=== PATIENT | female | born 1980 | race Hispanic/Latino ===

== ENCOUNTER 2020-06-19 14:37 | Emergency (ER) | payer SELFPAY ==
[2020-06-19 14:42] VITALS: BP 148/91
--- NOTE | 2020-06-19 15:18 | Event Note ---
ED Screening Note ED Screening Note: 39-year-old female that presents with heart fluttering sensation and shortness of breath. Patient stated she was diaphoretic and shaky earlier today. This initial assessment/diagnostic orders/clinical plan/treatment(s) is/are subject to change based on patients health status, clinical progression and re- assessment by fellow clinical providers in the ED. Further treatment and workup at subsequent clinical providers discretion. Patient/guardian urged not to elope from the ED as their condition may be serious if not clinically assessed and managed. Initial orders include: Cardiac work-up
[2020-06-19 15:45] LABS: Basophils # (Auto) 0.1 K/mm3 (0.0-0.1); Basophils % (Auto) 0.4 % (0.0-1.8); Eosinophils # (Auto) 0.1 K/mm3 (0.0-0.4); Eosinophils % (Auto) 0.8 % (0.0-4.3); Hematocrit 43.6 % (30.3-42.9); Lymphocytes # (Auto) 3.9 K/mm3 (1.2-5.4); Lymphocytes % (Auto) 28.4 % (13.4-35.0); Mean Corpuscular HGB Conc 34 % (30-34); Mean Corpuscular Volume 86 fl (79-97); Monocytes # (Auto) 1.1 K/mm3 (0.0-0.8); Monocytes % (Auto) 7.8 % (0.0-7.3); Platelet Count 278 K/mm3 (140-440); Red Blood Count 5.07 M/mm3 (3.65-5.03); Red Cell Distribution Width 13.5 % (13.2-15.2)
[2020-06-19 15:55] LABS: INR 0.93 (0.87-1.13)
[2020-06-19 15:56] LABS: Partial Thromboplastin Time 24.7 Sec. (24.2-36.6)
--- NOTE | 2020-06-19 16:09 | XRay Report ---
CHEST 2 VIEWS INDICATION: Chest Pain. COMPARISON: none FINDINGS: Support devices: None. Heart: Within normal limits. Lungs/pleura: No acute air space or interstitial disease. No pneumothorax. Additional findings: None. IMPRESSION: No acute findings. Signer Name: Nino Cortez Jr, MD Signed: 06/19/2020 4:05 PM Workstation Name: [id number]
[2020-06-19 16:10] LABS: Alanine Aminotransferase 22 units/L (7-56); Albumin 4.7 g/dL (3.9-5); BUN/Creatinine Ratio 24; Blood Urea Nitrogen 19 mg/dL (7-17); Calcium 10.2 mg/dL (8.4-10.2); Hemolysis Index 7
--- NOTE | 2020-06-19 17:28 | Emergency Department Report ---
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 When she was having the palpitation she also admitted to some shortness of breath with exertion. It happened again shortly before presentation to the emergency department. However, since the patient has been waiting to be seen, the symptoms have resolved. She has a past medical history of pseudotumor cerebri. She has not taken anything for symptoms prior to presentation. She denies any fever, chest pain, cough, wheezing, lower extremity edema. Patient follows with [facility] for primary care, but will get one established through [facility] as she now has the [employer] insurance. No recent travel or sick contacts at home. ED Past Medical Hx - Past Medical History Previous Medical History?: Yes Additional medical history: pseudo brain tumor - Surgical History Past Surgical History?: Yes Additional Surgical History: hysterectomy ED Review of Systems ROS: Stated complaint: HEART FLUTTER/SWEATING Other details as noted in HPI Comment: All other systems reviewed and negative Constitutional: denies: chills, fever Eyes: denies: eye pain, vision change ENT: denies: ear pain, throat pain Respiratory: SOB with exertion. denies: cough Cardiovascular: palpitations. denies: chest pain, edema Gastrointestinal: denies: abdominal pain, vomiting Genitourinary: denies: dysuria, discharge Musculoskeletal: denies: back pain, arthralgia Skin: denies: rash, lesions Neurological: denies: headache, weakness Physical Exam - Physical Exam Vital Signs: Vital Signs 06/19/20 14:41 Temperature 98.4 F Pulse Rate 99 H Respiratory 18 Rate Blood Pressure 148/91 [Right] O2 Sat by Pulse 96 Oximetry Physical Exam: GENERAL: The patient is well-developed well-nourished. HENT: Normocephalic. Atraumatic. Patient has moist mucous membranes. EYES: Extraocular motions are intact. NECK: Supple. Trachea is midline. CHEST/LUNGS: Clear to auscultation. There is no respiratory distress noted. HEART/CARDIOVASCULAR: Regular. There is no tachycardia. There is no murmur. ABDOMEN: Abdomen is soft, nontender. Patient has normal bowel sounds. SKIN: Skin is warm and dry. NEURO: The patient is awake, alert, and oriented. The patient is cooperative. The patient has no focal neurologic deficits. Normal speech. MUSCULOSKELETAL: There is no tenderness or deformity. There is no limitation range of motion. ED Course Vital Signs 06/19/20 14:41 Temperature 98.4 F Pulse Rate 99 H Respiratory 18 Rate Blood Pressure 148/91 [Right] O2 Sat by Pulse 96 Oximetry ED Medical Decision Making - Lab Data Result diagrams: 06/19/20 15:26 06/19/20 15:26 - EKG Data -: EKG Interpreted by Me EKG shows normal: sinus rhythm, axis, intervals, QRS complexes, ST-T waves Rate: normal - EKG Data When compared to previous EKG there are: previous EKG unavailable Interpretation: normal EKG - Radiology Data Radiology results: image reviewed interpreted by me: Chest x-ray does not show any acute process. There are no pleural effusions, obvious pneumonia and there is no pneumothorax. No significant cardiomegaly. - Medical Decision Making This patient presents to the emergency department after having some palpitations earlier this morning and some sweats at that time. The symptoms improved and then returned. However, the symptoms have resolved after some time in the emergency department. The patient had most of her work-up done through triage including blood work, EKG and a chest x-ray. EKG did not have any morphology consistent with ST elevation myocardial infarction or any dysrhythmia. Chest x- ray does not show any pneumonia, pleural effusions, pneumothorax, or any other acute process. The patient's labs have been unremarkable including CBC, metabolic panel and negative troponins x2. Vital signs have been reassuring throughout her ED course including being afebrile. She is low on the Wells score criteria and negative on the pulmonary embolism rule out criteria. For all these reasons the patient appears safe for discharge home at this time. She has been given outpatient referrals for both primary care and cardiology. She will return to the emergency department with any worsening of her symptoms or with any acute distress. Critical Care Time: No Critical care attestation.: If time is entered above; I have spent that time in minutes in the direct care of this critically ill patient, excluding procedure time. ED Disposition Clinical Impression: Palpitations Disposition: DC-01 TO HOME OR SELFCARE Is pt being admited?: No Condition: Stable Instructions: Palpitations Additional Instructions: Please follow-up with a primary care physician. I am giving you a referral for a local arcade games mechanic, Dr. Fontenot, to follow-up regarding the palpitations. Return to the emergency department with any worsening of your symptoms, new or concerning symptoms not addressed during this current emergency department visit, or with any acute distress. Referrals: ASHLEIGH FONTENOT MD [Staff Physician] - 3-5 Days EFRAIN GARCIA MD [Staff Physician] - 3-5 Days MAURISIO CASTILLO MD [Staff Physician] - 3-5 Days Time of Disposition: 17:28
== END 2020-06-19 17:32 | disposition home or self-care (01) ==
LOC: ED 14:37
DX: R00.2 Palpitations (principal); Z79.899 Other long term (current) drug therapy; Z90.710 Acquired absence of both cervix and uterus
CPT/HCPCS: 36415; 71046; 80053; 84484; 84703; 85025; 85610; 85730; 93005

== ENCOUNTER 2020-07-21 08:09 | Outpatient (CLI) | payer BC ==
[2020-07-21 08:46] LABS: Basophils % (Auto) 0.5 % (0.0-1.8); Eosinophils # (Auto) 0.1 K/mm3 (0.0-0.4); Eosinophils % (Auto) 0.8 % (0.0-4.3); Hematocrit 40.8 % (30.3-42.9); Hemoglobin 13.7 gm/dl (10.1-14.3); Lymphocytes # (Auto) 2.7 K/mm3 (1.2-5.4); Mean Corpuscular HGB Conc 34 % (30-34); Mean Corpuscular Volume 87 fl (79-97); Monocytes # (Auto) 0.5 K/mm3 (0.0-0.8); Monocytes % (Auto) 6.2 % (0.0-7.3); Platelet Count 231 K/mm3 (140-440); Red Cell Distribution Width 13.6 % (13.2-15.2)
[2020-07-21 09:06] LABS: % Iron Saturation 24.84 %; Alanine Aminotransferase 18 units/L (7-56); Albumin 3.9 g/dL (3.9-5); Blood Urea Nitrogen 12 mg/dL (7-17); Calcium 8.4 mg/dL (8.4-10.2); HDL Cholesterol 44 mg/dL (40-59); Hemolysis Index 13; Iron 79 ug/dL (37-170); LDL Cholesterol,Direct 129 mg/dL (50-130); Total Iron Binding Capacity 318 mcg/dL (250-450)
[2020-07-21 09:20] LABS: BUN/Creatinine Ratio 20
== END 2020-07-21 08:10 | disposition home or self-care (01) ==
LOC: LAB 08:09
PROVIDERS: ATTEND Surgery
DX: E66.01 Morbid (severe) obesity due to excess calories (principal); K30 Functional dyspepsia; E11.9 Type 2 diabetes mellitus without complications
CPT/HCPCS: 36415; 80053; 80061; 82306; 82607; 82728; 83036; 83550; 84443; 85025; 85730

== ENCOUNTER 2020-07-26 11:00 | Outpatient (CLI) | payer BC | END 2020-07-26 11:01 | disposition home or self-care (01) | LOC: LAB 11:00 | PROVIDERS: ATTEND Internal Medicine | DX: Z13.21 Encounter for screening for nutritional disorder (principal); E34.9 Endocrine disorder, unspecified; E87.8 Other disorders of electrolyte and fluid balance, not elsewhere classified; B95.62 Methicillin resistant Staphylococcus aureus infection as the cause of diseases classified elsewhere | CPT/HCPCS: 36415; 82306; 82670; 83001; 83735; 84100; 84144 ==

== ENCOUNTER 2020-08-02 10:53 | Outpatient (CLI) | payer BC | END 2020-08-02 10:54 | disposition home or self-care (01) | LOC: ECHO 10:53 | PROVIDERS: ATTEND Internal Medicine | DX: I07.1 Rheumatic tricuspid insufficiency (principal); R60.9 Edema, unspecified | CPT/HCPCS: 93306 ==

== ENCOUNTER 2020-08-14 07:48 | Outpatient (CLI) | payer BC ==
--- NOTE | 2020-08-14 09:40 | Fluoroscopy Report ---
UPPER GI HISTORY: FUNCTIONAL DYSPEPSIA. TECHNIQUE: Single and double contrast barium technique utilized to evaluate the esophagus, stomach, and duodenal C-loop. FINDINGS: To begin the exam, swallowing was evaluated in the lateral position under direct fluorosco py. Swallowing was normal. No mucosal irregularity, mass, mass effect, or critical stenosis. There were no abnormal tertiary c ontractions as seen with dysmotility. No gastroesophageal reflux. IMPRESSION: Unremarkable exam. Fluoroscopic time: 0.7 minutes Number of fluoroscopic images: 17 Signer Name: Nino Cortez Jr, MD Signed: 08/14/2020 9:35 AM Workstation Name: [id number]
== END 2020-08-14 07:49 | disposition home or self-care (01) ==
LOC: FLUORO 07:48
PROVIDERS: ATTEND Surgery
DX: K30 Functional dyspepsia (principal)
CPT/HCPCS: 74246

== ENCOUNTER 2020-09-11 11:00 | Outpatient (CLI) | payer BC | END 2020-09-11 11:01 | disposition home or self-care (01) | LOC: SLR 11:00 | PROVIDERS: ATTEND Surgery | DX: G47.33 Obstructive sleep apnea (adult) (pediatric) (principal) | CPT/HCPCS: 95810 ==

== ENCOUNTER 2020-10-23 11:42 | Outpatient (CLI) | payer BC ==
--- NOTE | 2020-11-16 00:46 | Pulmonary Function Test ---
DATE OF VISIT: 10/23/2020 PULMONARY FUNCTION TEST SPIROMETRY: FVC is 3.13 liters, which is 85% of the predicted. FEV1 is 2.75 liters, which is 91% of predicted. The FEV1/FVC ratio is 88. Flow volume loop FEF 25-75% is 3.80 liters per second, which is 119% of the predicted. IMPRESSION: This is a normal spirometry. TID: [id number] RECEIPT: [id number] RSM/EKT cc: Zena Oakley
== END 2020-10-23 11:43 | disposition home or self-care (01) ==
LOC: PF 11:42
PROVIDERS: ATTEND Surgery
DX: R06.02 Shortness of breath (principal); E66.01 Morbid (severe) obesity due to excess calories
CPT/HCPCS: 94010

== ENCOUNTER 2020-11-21 08:09 | Day surgery (SDC) | payer BC ==
[~2020-11-21 08:09] MED LIST: SODIUM CHLORIDE 0.9% 1000 ML 1,000 ML IV SCH
--- NOTE | 2020-11-21 09:48 | Operative Report ---
Operative Report Operative Report: DATE: 11/21/2020 SURGERY: Upper endoscopy. SURGEON: Zena Oakley M.D. PROCEDURE: EGD with biopsy PRE OP DX: morbid obesity, GERD POST OP DX: morbid obesity, GERD TYPE OF ANESTHESIA: MAC. ESTIMATED BLOOD LOSS: None. COMPLICATIONS: None. SPECIMENS REMOVED: antral biopsy FINDINGS: 1. Small hiatal hernia. 2. Otherwise, normal esophagus, stomach and first portion of duodenum. INDICATIONS:INDICATION FOR PROCEDURE: Patient is a 40-year-old female with a long history of morbid obesity. She is planned to have a weight loss procedure and is here for preoperative planning EGD. PROCEDURE DETAILS: After consent was reviewed, patient was taken back to the operating room where patient was placed in the left lateral decubitus position and a bite block was placed in the mouth. After a time-out was called, MAC anesthesia was initiated. I then passed the endoscope into her oropharynx, into her esophagus, visualized the entire esophagus, which was all within normal limits. Z-line was noted to about 35 cm from incisors. I then visualized the stomach and the first portion of the duodenum and there were no abnormalities I could clearly visualize except for antral gastritis. A cold forceps biopsy of the antrum was taken and will be sent to pathology to evaluate for H.pylori. I then retroflexed the scope in the stomach and visualized the hiatus and I could see a small hiatal hernia. I then desufflated the stomach and removed the endoscope. Patient tolerated procedure well and was transferred to recovery room in good and stable condition.
--- NOTE | 2020-11-21 09:50 | Discharge Summary ---
Providers - Providers Date of Admission: 11/21/2020 Date of discharge: 11/21/20 Attending physician: ALEXIS GARCIA MD Primary care physician: ISABEL BATISTA Hospitalization Reason for admission: EGD Condition: Good Procedures: EGD with biopsy Hospital course: Pt presented for a pre-op EGD as part of planning for up coming bariatric surgery. Procedure was uneventful and pt recovered well and was discharged to home. Disposition: DC-01 TO HOME OR SELFCARE Final Discharge Diagnosis (Prints w/discharge instructions): GERD, morbid obesity Core Measure Documentation - Palliative Care Palliative Care/ Comfort Measures: Not Applicable - Core Measures Any of the following diagnoses?: none Exam - Physical Exam Narrative exam: unchanged from pre-op Plan Activity: advance as tolerated Diet: low carbohydrate Follow up with: ISABEL BATISTA MD [Primary Care Provider] - 7 Days
--- NOTE | 2020-11-21 10:47 | Anesthesia Day of Surgery ---
Anesthesia Day of Surgery - Day of Surgery Patient Examined: Yes Patient H&P Reviewed: Yes Patient is NPO: Yes
--- NOTE | 2020-11-21 10:48 | Anesthesia Consultation ---
Anesthesia Consult and Med Hx Date of service: 11/21/20 - Airway Anesthetic Teeth Evaluation: Good ROM Head & Neck: Adequate Mental/Hyoid Distance: Adequate Mallampati Class: Class II Intubation Access Assessment: Good - Pre-Operative Health Status ASA Pre-Surgery Classification: ASA2 Proposed Anesthetic Plan: MAC - Pulmonary Hx Sleep Apnea: No - Cardiovascular System Hx Hypertension: No (Low BP) - Central Nervous System Hx Neuromuscular Disorder: Yes (Pseudotumor cerebri-stable per pt.) - Other Systems Hx Obesity: Yes
[2020-11-21] MEDS ORDERED: LIDOCAINE MPF (2%) 20 MG/1 ML VIAL 5 ML ONE (11:00)
[2020-11-21] MEDS ORDERED: propofoL 200 MG/20 ML VIAL IV ONE (11:15)
[2020-11-21 12:42] VITALS: BP 108/56
--- NOTE | 2020-11-21 19:29 | Post Anesthesia Evaluation ---
- Post Anesthesia Evaluation Patient Participated: Yes Airway Patent: Yes Stable Respiratory Function: Yes Nausea/Vomiting: No Temp > 96.8F: Yes Pain Manageable: Yes Adequeate Hydration: Yes Anesthesia Complications: No Block Receding Appropriately: Not Applicable Patient on Ventilator: No
== END 2020-11-21 12:14 | disposition home or self-care (01) ==
LOC: GIO 08:09
PROVIDERS: ATTEND Surgery
DX: K21.9 Gastro-esophageal reflux disease without esophagitis (principal); E66.01 Morbid (severe) obesity due to excess calories; K30 Functional dyspepsia; K44.9 Diaphragmatic hernia without obstruction or gangrene; I10 Essential (primary) hypertension; K29.70 Gastritis, unspecified, without bleeding; Z79.899 Other long term (current) drug therapy; Z68.41 Body mass index [BMI] 40.0-44.9, adult
CPT/HCPCS: 43239; 88305; 88342; J2704; J7030

== ENCOUNTER 2021-01-26 08:53 | Outpatient (CLI) | payer BC ==
--- NOTE | 2021-01-26 10:47 | Electrocardiograph Report ---
[facility] Test Date: 2021-01-26 Test Time: 09:33:29 Pat Name: NANCY SIMS Department: Room: Gender: F Line Tester: ANASTACIO : 1980 Requested By: ALEXIS GARCIA Order Number: [id number] Reading MD: Varun Painter Measurements Intervals Pandora Rate: 50 P: 34 MA: 158 QRS: 45 QRSD: 113 T: 24 QT: 454 QTc: 412 Interpretive Statements Sinus rhythm BRADYCARDIA. NSST'S No previous ECG available for comparison Electronically Signed On 01-26-2021 10:46:30 EDT by Varun Painter
--- NOTE | 2021-01-26 17:46 | Treadmill Report ---
[facility] Test Date: 2021-01-26 Test Time: 07:33:58 Pat Name: NANCY SIMS Department: Room: Gender: F Manager Scientific: Joseline Oh : 1980 Requested By: ALEXIS GARCIA Order Number: [id number] Reading MD: Merritt Brown Interpretive Statements Baseline EKG showed S.R,WNL. Exercised for 7'10". Test ws stopped because of severe SOB and ronchi noted.No chest pain. NoEKG changes,attained HR of 161/mt,attained 104% of target HR. No arrhythmia noted. B.P response was appropriate. IMP:Fair exercise tolerance. Negative for angina/ischemia. Appropriate B.P response. Patient noted to develop severe SOB and audible ronchi noted,suggesting exercise induced bronchospasm,resolved with rest. Electronically Signed On 01-26-2021 17:45:49 EDT by Merritt Brown
== END 2021-01-26 08:54 | disposition home or self-care (01) ==
LOC: CARD 08:53
PROVIDERS: ATTEND Surgery
DX: E66.01 Morbid (severe) obesity due to excess calories (principal)
CPT/HCPCS: 93005; 93017

== ENCOUNTER 2021-02-26 05:54 | Inpatient (IN) | payer BC, OTHER ==
[2021-02-21 10:51] LABS: Hematocrit 43.1 % (30.3-42.9); Hemoglobin 14.9 gm/dl (10.1-14.3); Mean Corpuscular HGB Conc 35 % (30-34); Mean Corpuscular Volume 88 fl (79-97); Platelet Count 228 K/mm3 (140-440); Red Blood Count 4.91 M/mm3 (3.65-5.03); Red Cell Distribution Width 13.4 % (13.2-15.2)
[2021-02-21 11:12] LABS: Alanine Aminotransferase 44 units/L (7-56); Albumin 4.3 g/dL (3.9-5); Blood Urea Nitrogen 15 mg/dL (7-17); Calcium 9.9 mg/dL (8.4-10.2); Hemolysis Index 7
[2021-02-21 11:38] LABS: BUN/Creatinine Ratio 21
--- NOTE | 2021-02-21 16:59 | Anesthesia Consultation ---
Anesthesia Consult and Med Hx Date of service: 02/21/21 - Airway Anesthetic Teeth Evaluation: Good ROM Head & Neck: Adequate Mental/Hyoid Distance: Adequate Mallampati Class: Class III Intubation Access Assessment: Possibly Difficult - Pulmonary Exam CTA: Yes - Cardiac Exam Cardiac Exam: RRR - Pre-Operative Health Status ASA Pre-Surgery Classification: ASA3 Proposed Anesthetic Plan: General - Pulmonary Hx Smoking: No Hx Respiratory Symptoms: Yes (FORD; unrevealing cardiac and pulm work up; concern for post COVID syndrome) SOB: Yes Home Oxygen Therapy: No Hx Sleep Apnea: No (negative sleep study) - Cardiovascular System Hx Hypertension: No (reports baseline SBP 90s-110s ) Hx Heart Attack/AMI: No (Exc stress test: no ischemia, but did have excercise induced bronchospasm) Hx Cardia Arrhythmia: No - Central Nervous System Hx Neuromuscular Disorder: Yes (Pseudotumor cerebri; asymptomatic on diuretics) CVA: No Hx Psychiatric Problems: Yes (PTSD) - Endocrine Hx Renal Disease: No Hx Liver Disease: No Hx Insulin Dependent Diabetes: No Hx Non-Insulin Dependent Diabetes: No Hx Thyroid Disease: No - Other Systems Hx Obesity: Yes (BMI 39) - Additional Comments Anesthesia Medical History Comments: No hx anesthetic complications. COVID+ 11/2019 and has since had FORD. TTE showed normal EF, no valvulopathy. Stress test negative for ischemia but patient experienced exercise induced bronchospasm which resolved w/ rest. Normal PFTs. PMH pseudotumor cerebri followed by neurology. Will request most recent neurology notes. Denies symptoms of increased ICP.
[2021-02-26] MEDS ORDERED: SCOPOLAMINE TRANSDERMAL PATCH 72 HR TD NR ×2 (06:00→18:00)
[2021-02-26] MEDS ORDERED: ACETAMINOPHEN IV 1,000 MG/100 ML BOTTLE IV NR (06:00)
[2021-02-26] MEDS ORDERED: ENOXAPARIN 40 MG/0.4 ML INJ SUB-Q NR (06:00)
[2021-02-26] MEDS ORDERED: GABAPENTIN 500 MG/10 ML ORAL LIQD PO NR ×2 (06:00→18:00)
[2021-02-26] MEDS ORDERED: LACTATED RINGERS 1,000 ML IV SCH ×2 (06:00→17:15)
[2021-02-26] MEDS ORDERED: MIDAZOLAM 2 MG/2 ML INJ IV NR ×2 (06:00→18:00)
[2021-02-26] MEDS ORDERED: dexAMETHasone 20 MG/5 ML VIAL ONE (06:54)
[2021-02-26] MEDS ORDERED: KETAMINE/STERILE WATER 50 MG/ML SYRINGE ONE (06:54)
[2021-02-26] MEDS ORDERED: LIDOCAINE PF 100 MG/5 ML (CARDIAC SYRINGE) IV ONE ×3 (06:54→09:47)
[2021-02-26] MEDS ORDERED: propofoL 200 MG/20 ML VIAL IV ONE (06:54)
[2021-02-26] MEDS ORDERED: SUGAMMADEX SODIUM 200 MG/2 ML VIAL IV ONE (07:08)
[2021-02-26] MEDS ORDERED: LIDOCAINE 1%/EPINEPHRINE 1:100,000 VIAL (20 ML) INFILTRATI ONE ×2 (07:16→08:36)
[2021-02-26] MEDS ORDERED: BUPIVACAINE/PF (0.25%) 2.5 MG/ML 30 ML VIAL INFILTRATI ONE ×2 (07:16→08:33)
[2021-02-26] MEDS ORDERED: ONDANSETRON 4 MG/2 ML INJ IV PRN ×2 (07:25→11:30)
[2021-02-26] MEDS ORDERED: HYDROmorphone 1 MG/1 ML INJ IV PRN ×3 (07:25→11:00)
--- NOTE | 2021-02-26 07:32 | Anesthesia Day of Surgery ---
Anesthesia Day of Surgery - Day of Surgery Patient Examined: Yes Patient H&P Reviewed: Yes Patient is NPO: Yes (Pt went duck hunting over the weekend and has numerous mosquito bites)
[2021-02-26] MEDS ORDERED: MAGNESIUM SULFATE 4 GM/100 ML BAG IV ONE (07:39)
[2021-02-26] MEDS ORDERED: ceFAZolin/Water 2 GM/20 ML 2 GM/20 ML SYRINGE IV ONE (07:44)
[2021-02-26] MEDS ORDERED: ePHEDrine SULFATE 50 MG/1 ML INJ ONE (08:28)
[2021-02-26] MEDS ORDERED: methOCARBAMOL 1,000 MG in SODIUM CHLORIDE 0.9% 250ML 250 ML IV NR (08:30)
[2021-02-26] MEDS ORDERED: SODIUM CHLORIDE 0.9% IRR 1,500 ML BOTTLE IR ONE (08:36)
[2021-02-26] MEDS ORDERED: ROCURONIUM 50 MG/5 ML INJ IV ONE ×2 (09:46)
[2021-02-26] MEDS ORDERED: ONDANSETRON 4 MG/2 ML INJ ONE (09:46)
[2021-02-26] MEDS ORDERED: PHENYLEPHRINE 10 MG/1 ML INJ SDV ONE (09:47)
--- NOTE | 2021-02-26 10:13 | Operative Report ---
Operative Report Operative Report: DATE:02/26/2021 Surgeon: Zena Oakley MD Jigger Crown Pouncing Machine Operator surgeon: Elida Carlisle CSA MD Pre-op Dx: morbid obesity Post-op Dx: morbid obesity Procedure: 1. laparoscopic sleeve gastrectomy Anesthesia: GETA and TAP block EBL: <10ml Specimen: gastric remnant Complication: none immediate Indication: 40 year old female with a history of morbid obesity . Pt is here for sleeve gastrectomy for weight loss to achieve healthier weight and improve or resolve his co-morbidities. She expressed understanding of the risks and benefits. PROCEDURE IN DETAIL: After consent was reviewed, patient was taken back to the operating room, where patient was placed supine on the bed with both arms out. The patient's legs were doubly strapped to the bed. Patient had a foot board in place. Patient had a body warmer placed by anesthesia. General anesthesia was induced with successful endotracheal intubation. Patient was then prepped and draped in normal sterile surgical fashion. After a time-out was called, I made a stab incision in the left subcostal area and placed a Veress needle through this incision and insufflated the abdomen to 18 mmHg pressure. I then counted down a handsbreadth below the xiphoid process in the midline and slightly left lateral injected local anesthetic and made about 1 cm transverse incision. I then used a 5-mm Optiview trocar to enter into the abdomen. There was no gross injury to any intra-abdominal structures. I then placed a 30-degree scope through this port and inspected the abdomen. I then placed a 8-mm port in the right upper quadrant, and 1 5mm in the epigastric area below the costovertebral angle. I then placed a 15-mm port about a handsbreadth in the right mid abdomen. After which a 5mm port was placed in left upper quadrant port along the anterior axillary line in a similar fashion. A liver retractor was placed to the epigastric port to elevate the left lateral lobe and liver. A small anterior gastric fat pad was excised. I started approximately 6 cm proximal to the pylorus, using a LigaSure device the short gastrics were taken all the way to the left stephany. Once the lateral portion of the stomach was mobile anesthesia passed a 40 Lao bougie along the medial aspect to act as a stent. Using serial firings of endoscopic stapler to gold, followed by 4 blue, the lateral portion of the stomach was transected making sure to did not close to the 2 cm to the incisura. All staple loads were supported with Ethicon buttress strips. The sleeve stomach was seen to be without kink obstruction or twisting. The pressure was decreased to 10 mmHg. The staple line was inspected for approximately 5 minutes. There was no significant bleeding appreciated except for a slight ooze at the most distal portion of the staple line. Bleeding was minimal and easily controlled with endoscopic clip. Vistaseal was then sprayed along the entirety of the staple line. The liver retractor was removed. A TAP block was performed with 60ml of 0.25% marcaine along bilateral mid axillary lines starting from the subcostal region to just below the level of the umbili cus This was after the gastric remnant was grasped and pulled into the 15 mm trocar site. The stomach was extracted via the 15 mm trocar site. After the fascia had to be stretched with a Yael clamp to easily remove the stomach, the fascia was closed using a beverly andrew device at the level of the fascia with an 0 PDS. trocars were removed under direct visualization. All skin incisions were closed with 4-0 Monocryl followed by Dermabond. Patient was awoken, extubated, and taken to recovery stable condition. All counts were correct.
[2021-02-26] MEDS ORDERED: MEPERIDINE 25 MG/1 ML INJ ONE (10:54)
[2021-02-26] MEDS ORDERED: MORPHINE 2 MG/1 ML INJ IV PRN (11:30)
[2021-02-26] MEDS ORDERED: hydrALAZINE 20 MG/1 ML INJ IV PRN (11:30)
[2021-02-26] MEDS ORDERED: MEPERIDINE 25 MG/1 ML INJ IV PRN (11:30)
[2021-02-26] MEDS: KETOROLAC 30 MG/1 ML INJ IV SCH ×3 (11:35→22:30)
[2021-02-26] MEDS: PANTOPRAZOLE 40 MG INJ IV SCH (11:40)
[2021-02-26] MEDS: metroNIDAZOLE/NS 500 MG/100 ML 500 MG/100 ML BAG IV SCH ×2 (11:51→20:36)
[2021-02-26] MEDS ORDERED: METOCLOPRAMIDE 10 MG/2 ML INJ IV PRN (12:00)
[2021-02-26] MEDS ORDERED: HYDROcodone/Acetaminophen 7.5-325MG-15ML ORAL LIQD PO PRN (12:00)
[2021-02-26] MEDS ORDERED: SIMETHICONE 80 MG CHEW TAB PO PRN (12:00)
[2021-02-26] MEDS: ACETAMINOPHEN IV 1,000 MG/100 ML BOTTLE IV SCH ×2 (15:15→23:19)
--- OUTSIDE RECORDS SUMMARY | 2021-02-26 15:26 | External Medical Summary ---
:1980 Author Organization [facility], [facility] Address [address] [place] [address] Care Team Providers Name Role Phone Zena Oakley Unavailable [phone] PROBLEMS Type Condition ICD9-CM ASG26-PP Onset Condition W/U Status Risk SNOM ED Notes Code Code Dates Status Code Problem Dietary Z71.3 Active confirmed 861137091 counseling and surveillance Problem Functional K30 Active confirmed 2638043 dyspepsia Problem Gastro-esopha K21.9 Active confirmed 765106 005 geal reflux disease without esophagitis Problem Benign G93.2 Active confirmed 85534082 intracranial hypertension Problem Sleep G47.9 Active confirmed 79410606 disorder, unspecified Problem Post-traumati F43.10 Active confirmed 822588 03 c stress disorder, unspecified Problem Morbid E66.01 Active confirmed 563696775 (severe) obesity due to excess calories ALLERGIES No Known Allergies ENCOUNTERS from 1980 to 2021-02-26 Encounter Location Date Provider Diagnosis [facility] Bariatrics [address] [facility] Feb, [place] [address] IMMUNIZATIONS No Information SOCIAL HISTORY Sex Assigned At : Social History Observation Description Sex Assigned At Unknown REASON FOR REFERRAL from 1980 to 2021-02-26 Diagnosis 1 Morbid (severe) obesity due to excess calories (E66.01) Diagnosis 2 Benign intracranial hyperten angela (G93.2) Diagnosis 3 Post-traumatic stress disord er, unspecified (F43.10) Diagnosis 4 Sleep disorder, unspecified (G47.9) Diagnosis 5 Functional dyspepsia (K30) Diagnosis 6 Dietary counseling and surve illance (Z71.3) Diagnosis 7 Gastro-esophageal reflux dis ease without esophagitis (K21.9) Referral Organization [facility] Referring Provider First Name Avelino Referring Provider Last Name Johnathan Referring Provider Specialty Orthopedic Surgery Referred Provider [facility], - Referral Priority Routine VITAL SIGNS No information MEDICATIONS Medication SIG (Take, Route, Notes Start Date End Date Status Frequency, Duration) Ondansetron 4 MG 1-2 tablet on the Feb, Active tongue and allow to dissolve Orally q 4-6 hours prn nausea for 30 day(s) traZODone HCl 100 MG 1 tablet at prn insomnia A ctive bedtime Orally Once a day for 30 day(s) Triamterene-HCTZ 1 tablet in the Not -Taking 37.5-25 MG morning Orally Once a day acetaZOLAMIDE 125 MG 1 tablet Orally BID Active Once a day for 30 day(s) acetaZOLAMIDE ER 500 1 capsule Orally Active MG BID NexIUM 40 MG 1 capsule Orally Feb, Acti ve Once a day for 30 day(s) Lasix Active FLUoxetine HCl 40 MG 1 capsule Orally Active Once a day for 30 day(s) PROCEDURES No Information RESULTS No Results REASON FOR VISIT Gastric Sleeve MEDICAL (GENERAL) HISTORY Type Description Date Medical History psuedo tumor cerebri Medical History PTSD Medical History dysphagia Medical History Mumps Medical History chicken pox Medical History Respiratory /Breathing Medical History Palpitation Medical History Hot flashes Surgical History robotic partial hysterectomy 07/2019 Surgical History left foot bunion surgery 2009 Surgical History EGD with esophageal dilation for strictu re 2018 Hospitalization History As above Goals Section No Information Health Concerns No Information MEDICAL EQUIPMENT No Information MENTAL STATUS No Information FUNCTIONAL STATUS No Information ASSESSMENTS No Information PLAN OF TREATMENT Medication Medication Name Sig Start Date Stop Date Ondansetron 4 MG 1-2 tablet on the tongue and allow to Feb, 021 dissolve Orally q 4-6 hours prn nausea for 30 day(s) NexIUM 40 MG 1 capsule Orally Once a day for 30 day(s) Feb Referrals Referral Date Details Next Appt Details Provider Name:Abelino Quinones, 2021- 3-03 08:30:00 AM, [address] [facility], [address], [place], [address], [phone] Insurance Providers Payer Name Payer Address Payer Insured Patient Coverage Cover age End Phone Name Relationship to Start Date Lorenzo e Insured Mickey [address] [phone] Frank Lowe [address] [address]
[2021-02-26] MEDS ORDERED: ceFAZolin/NS 1 GM/50 ML 1 GM/50 ML BAG IV SCH (16:00)
[2021-02-26] MEDS: ceFAZolin/NS 1 GM/50 ML 1 GM/50 ML BAG IV SCH (22:30)
[2021-02-26] MEDS: LACTATED RINGERS 1,000 ML IV SCH (23:26)
[2021-02-27] MEDS: ACETAMINOPHEN IV 1,000 MG/100 ML BOTTLE IV SCH ×2 (04:06→09:14)
[2021-02-27] MEDS: metroNIDAZOLE/NS 500 MG/100 ML 500 MG/100 ML BAG IV SCH (04:08)
[2021-02-27 05:25] LABS: Basophils % (Auto) 0.1 % (0.0-1.8); Eosinophils % (Auto) 0.1 % (0.0-4.3); Hematocrit 37.8 % (30.3-42.9); Hemoglobin 12.7 gm/dl (10.1-14.3); Lymphocytes # (Auto) 2.2 K/mm3 (1.2-5.4); Mean Corpuscular HGB Conc 34 % (30-34); Mean Corpuscular Volume 88 fl (79-97); Monocytes # (Auto) 1.3 K/mm3 (0.0-0.8); Monocytes % (Auto) 8.1 % (0.0-7.3); Platelet Count 213 K/mm3 (140-440); Red Cell Distribution Width 13.7 % (13.2-15.2)
[2021-02-27 05:37] LABS: Alanine Aminotransferase 45 units/L (7-56); Albumin 3.6 g/dL (3.9-5); Blood Urea Nitrogen 9 mg/dL (7-17); Calcium 8.3 mg/dL (8.4-10.2); Hemolysis Index 10
[2021-02-27 05:41] LABS: BUN/Creatinine Ratio 15
[2021-02-27] MEDS: KETOROLAC 30 MG/1 ML INJ IV SCH ×3 (07:13→17:11)
[2021-02-27] MEDS: ceFAZolin/NS 1 GM/50 ML 1 GM/50 ML BAG IV SCH (07:39)
[2021-02-27 08:32] VITALS: BP 110/61
[2021-02-27] MEDS ORDERED: ENOXAPARIN 40 MG/0.4 ML INJ SUB-Q SCH (10:00)
[2021-02-27] MEDS ORDERED: acetaZOLAMIDE 250 MG TAB PO SCH (10:00)
[2021-02-27] MEDS ORDERED: SCOPOLAMINE TRANSDERMAL PATCH 72 HR TD SCH (10:00)
[2021-02-27] MEDS ORDERED: ACETAZOLAMIDE 125 MG PO SCH (10:00)
[2021-02-27] MEDS ORDERED: FUROSEMIDE 20 MG TAB PO SCH (10:00)
[2021-02-27] MEDS ORDERED: FLUOXETINE HCL 40 MG PO SCH (10:00)
[2021-02-27] MEDS ORDERED: FLUoxetine 20 MG CAP PO SCH (10:00)
[2021-02-27] MEDS: PANTOPRAZOLE 40 MG INJ IV SCH (10:31)
[2021-02-27] MEDS: LACTATED RINGERS 1,000 ML IV SCH (10:32)
--- NOTE | 2021-02-27 16:44 | Discharge Summary ---
Providers - Providers Date of Admission: 02/26/21 05:54 Date of discharge: 02/27/21 Attending physician: ALEXIS GARCIA MD 02/26/21 10:03 Physical Therapy Evaluation and Treat [CONS] Routine Comment: Reason For Exam: post op bariatric surgery Primary care physician: ISABEL BATISTA Hospitalization Reason for admission: s/p lap sleeve gastrectomy Condition: Good Procedures: laparoscopic Hospital course: Patient had an uneventful postoperative course after a laparoscopic sleeve gastrectomy. Patient remained afebrile and stable with adequate pain control. Patient was tolerating liquids without difficulty, and ambulating well. She was discharged to home on postoperative day 1 showing no clinical signs of leak or bleeding. Patient to follow-up in the office in the next 2 weeks for checkup. Disposition: 01 HOME / SELF CARE / HOMELESS Final Discharge Diagnosis (Prints w/discharge instructions): Morbid obesity, pseudotumor cerebri Core Measure Documentation - Palliative Care Palliative Care/ Comfort Measures: Not Applicable - Core Measures Any of the following diagnoses?: none Exam - Constitutional Vitals: Temp Pulse Resp BP Pulse Ox 98.2 F 88 18 110/61 98 02/27/21 07:38 02/27/21 09:43 02/27/21 07:38 02/27/21 07:38 02/27/21 09:43 General appearance: Present: no acute distress, well-nourished, obese - Respiratory Respiratory effort: normal - Cardiovascular Heart Sounds: Present: S1 & S2 - Extremities Extremities: no ischemia - Abdominal General gastrointestinal: Present: soft, non-distended, other (Incisions clean dry and intact, appropriately tender to palpation) Plan Activity: advance as tolerated Diet: clear liquids Wound: open to air, keep clean and dry Follow up with: ISABEL BATISTA MD [Primary Care Provider] - 7 Days
== END 2021-02-27 18:40 | disposition home or self-care (01) | DRG 621 ==
LOC: 3A 05:54 → 4A 12:19
PROVIDERS: ADMIT Surgery; ATTEND Surgery
PROC: 0DB64Z3 Excision of Stomach, Percutaneous Endoscopic Approach, Vertical (ICD-10-PCS; principal; 2021-02-26)
DX: E66.01 Morbid (severe) obesity due to excess calories (principal); Z68.41 Body mass index [BMI] 40.0-44.9, adult; G93.2 Benign intracranial hypertension
CPT/HCPCS: 36415; 80053; 85025; 85027; 88307; 88342; G0378; C9113; J0131; J0690; J1100; J1170; J1650; J1885; J2001; J2175; J2250; J2370; J2405; J2704; J2765; J3475; J3490; J7120; U0003